=== PATIENT | female | born 1990 | race Caucasian/White ===

== ENCOUNTER 2016-10-04 09:31 | Emergency (ER) | payer BC, OTHER ==
[2016-10-04 09:41] VITALS: BP 128/74
[2016-10-04] MEDS ORDERED: Albuterol/Ipratropium NEB.SOL* Albuterol 2.5 MG/Ipratropium 0.5 MG 3 ML INH ONE ×2 (09:50→09:51)
--- NOTE | 2016-10-04 10:23 | UC ---
Ray Rizzo Thomas, scribed for Kim May MD on 10/04/16 at 1004 . Shortness of Breath HPI - HPI Summary HPI Summary: The pt is a 26 y/o F with a Hx of asthma presenting to [facility] c/o SOB progressing x 2 days. PT states feels like settling in chest. . Pt additionally c/o CAT, throat pain, throat tightness, wheezing (minor), cough with green production. She was recently treated for a sinus infection and completed 7/10 days of Abx. She also reports a recent yeast infection improved with tx. Pt states she has used her albuterol inhaler yesterday - did not use today. STates it is . She has taken Nyquil the last two days. No h/o admission, intubation for asthma. Pt states sinus congestion and ear fullness improved. No fevers, chills, rash. PMHx: asthma, sleep apnea. PSHx: tonsillectomy, knee repair. SHx: smoking (1/2 PPD), no alcohol, no illicit drugs. FHx: asthma. She has never been hospitalized or intubated for her asthma. She has never taken prednisone for her asthma. She has an IUD implanted. She works at [employer]. She sleeps with CPAP. Patients medication reviewed this visit. - History of Current Complaint Chief Complaint: UCRespiratory Stated Complaint: SOB Time Seen by Provider: 10/04/16 09:44 Hx Obtained From: Patient Hx Last Menstrual Period: pt has an IUD and states not getting a menses Onset/Duration: Sudden Onset, Lasting Hours - began today, Still Present Timing: Constant Dyspnea At: Rest Aggrevating Factors: Nothing Alleviating Factors: Bronchodilators, OTC Meds Associated Signs & Symptoms: Positive: Cough (Productive) - green, Wheezing, Other - POS: throat tightness, CAT - Allergy/Home Medications Allergies/Adverse Reactions: Allergies Allergy/AdvReac Type Severity Reaction Status Date / Time No Known Allergies Allergy Verified 10/04/16 09:41 Home Medications: Home Medications Albuterol HFA INHALER* [Ventolin HFA Inhaler*] 2 puff INH Q4H PRN 10/04/16 [ History Confirmed 10/04/16] Iud 10/04/16 [History] PMH/Surg Hx/FS Hx/Imm Hx Previously Healthy: No Respiratory History: Asthma, Other - Hx of sleep apnea Other Respiratory History: sleep apnea - Surgical History Surgical History: Yes Surgery Procedure, Year, and Place: LT [id number] RT [id number] APPENDECTOMY= 2012. tonsils - Family History Known Family History: Positive: Other - POS: asthma - Social History Alcohol Use: Weekly Alcohol Amount: maybe once a week Substance Use Type: None Substance Use Comment - Amount & Last Used: alcohol 06/24/13 Smoking Status (MU): Light Every Day Tobacco Smoker Type: Cigarettes Amount Used/How Often: 5 per day Length of Time of Smoking/Using Tobacco: since age 21 Have You Smoked in the Last Year: Yes - Immunization History Most Recent Influenza Vaccination: 2013 Most Recent Tetanus Shot: WITHIN 10 YRS Most Recent Pneumonia Vaccination: never Review of Systems Constitutional: Negative Skin: Negative Eyes: Negative ENT: Negative Respiratory: Shortness Of Breath, Cough - with green production, Other - POS: throat tightness, wheezing Cardiovascular: Negative Gastrointestinal: Negative Genitourinary: Negative Motor: Negative Neurovascular: Negative Musculoskeletal: Negative Neurological: Headache Psychological: Negative All Other Systems Reviewed And Are Negative: Yes Physical Exam Triage Information Reviewed: Yes Appearance: Well-Appearing, No Pain Distress, Well-Nourished Vital Signs: Initial Vital Signs Temp 98.2 F 10/04/16 09:33 Pulse 85 10/04/16 09:33 Resp 18 10/04/16 09:33 BP 128/74 10/04/16 09:33 Pulse Ox 99 10/04/16 09:33 Vital Signs Reviewed: Yes Eye Exam: Normal Eyes: Positive: Conjunctiva Clear ENT Exam: Normal ENT: Positive: Hearing grossly normal, Pharynx normal, Nasal drainage, TMs normal Dental Exam: Normal Neck exam: Normal Neck: Positive: Supple, Nontender, No Lymphadenopathy Respiratory Exam: Normal Respiratory: Positive: Chest non-tender, No respiratory distress - mild increased WOB + scattered diffuse wheeze No rhonci, No accessory muscle use. Negative: Normal breath sounds, Respiratory distress Cardiovascular Exam: Normal Cardiovascular: Positive: RRR, No Murmur, Pulses Normal Abdominal Exam: Normal Abdomen Description: Positive: Nontender, No Organomegaly, Soft Bowel Sounds: Positive: Present Musculoskeletal Exam: Normal Musculoskeletal: Positive: Strength Intact Neurological Exam: Normal Neurological: Positive: Alert Psychological Exam: Normal Psychological: Positive: Normal Response To Family Skin Exam: Normal Re-Evaluation - Re-Evaluation First Eval Re-Evaluation Time: 10:30 Change: Improved Comment: Pt wheezing markedly improved. Still few, scattered wheezes. No increased WOB. Speaking easier sentences. Will give second duoneb. Pt states PCP office just called her back and called in ?RX to pharmacy. I called [facility] and I was informed PCP sent script for Levaquin Second Eval Re-Evaluation Time: 11:00 Change: Improved Shortness of Breath Dx - Course Course Of Treatment: The patient is a 26 y/o F with a Hx of asthma that presents to the ED c/o SOB that began this AM. She additionally c/o sore throat , wheezing, and CAT. REcent abx for sinusisits. At [facility] she was given two treatments of Duoneb. - Differential Dx/Diagnosis Provider Diagnoses: asthma exacerbation Discharge - Discharge Plan Condition: Stable Disposition: HOME Prescriptions: Albuterol HFA INHALER* [Ventolin HFA Inhaler*] 1 puff INH Q4H PRN #1 mdi PRN Reason: wheeze predniSONE TAB* [Deltasone TAB*] 50 mg PO DAILY #5 tab Patient Education Materials: Asthma (ED) Forms: *Work Release Referrals: Tracy Wagoner MD [Primary Care Provider] - Additional Instructions: - Take prednisone as prescribed until gone - Take antibiotics as prescribed by your doctor - Use inhaler - 2 puffs every 4 hours today, then eveyr 4 hours as needed - Stay well hydrated - drink plenty of non-alcoholic, non-caffinated beverages - After you have been on antibiotics for 2 days - change your toothbrush and your pillowcase. These infections are spread by secretions - do NOT share eating or drinking utensils - clean items you share with other people such as cell phones, computer mouse, TV remote, computer tablets, etc - Contact your doctor to schedule a follow-up appointment. Contact your doctor or return with questions or concerns The documentation as recorded by the Ray baldwin Thomas accurately reflects the service I personally performed and the decisions made by me, Kim May MD.
== END 2016-10-04 11:15 | disposition home or self-care (01) ==
LOC: UCEAST 09:31
DX: J45.901 Unspecified asthma with (acute) exacerbation (principal); R51 Headache; R07.0 Pain in throat; R05 Cough; F17.210 Nicotine dependence, cigarettes, uncomplicated
CPT/HCPCS: 99213; A9270-GY; G0463

== ENCOUNTER 2017-02-23 08:03 | Day surgery (SDC) | payer OTHER ==
[~2017-02-23 08:03] MED LIST: Buffered Lidocaine 0.9% SYRIN* 5 ML/SYR SYRINGE INTRADERM ONE; Famotidine IV* 10 MG/ML 2 ML (20 mg) IV ONE; Metoclopramide TAB* 10 MG PO ONE
[2017-02-23] MEDS ORDERED: Famotidine IV* 10 MG/ML 2 ML (20 mg) ONE (08:10)
[2017-02-23] MEDS ORDERED: Metoclopramide TAB* 10 MG ONE (08:11)
[2017-02-23] MEDS ORDERED: Buffered Lidocaine 0.9% SYRIN* 5 ML/SYR SYRINGE ONE (08:11)
[2017-02-23] MEDS ORDERED: Oxymetazoline 0.05% NASAL SPR* 15 ML BTL ONE ×2 (08:45→09:39)
[2017-02-23] MEDS ORDERED: Dexamethasone IV* 4 MG/ML 1 ML (4 MG) ONE (08:58)
[2017-02-23] MEDS ORDERED: fentaNYL* 50 MCG/ML 2 ML VIAL (100 MCG VIAL) ONE (08:58)
[2017-02-23] MEDS ORDERED: Lidocaine 2% PF * 5 ML VIAL ONE (08:58)
[2017-02-23] MEDS ORDERED: Propofol* 10 MG/ML 20 ML BTL IV PUSH ONE (08:58)
[2017-02-23] MEDS ORDERED: Ondansetron INJ* 2 MG/ML VIAL ONE (08:58)
[2017-02-23] MEDS ORDERED: Midazolam* 1 MG/ML 10 ML VIAL (10 MG) ONE (08:59)
[2017-02-23] MEDS ORDERED: Ondansetron INJ* 2 MG/ML VIAL IV PRN (09:33)
[2017-02-23] MEDS ORDERED: oxyCODONE/Acetamin 5/325 MG* TAB PO PRN (09:33)
[2017-02-23] MEDS ORDERED: fentaNYL* 50 MCG/ML 2 ML VIAL (100 MCG VIAL) IV PRN (09:33)
[2017-02-23] MEDS ORDERED: Lidocaine 1% INJ* 10 MG/ML 30 ML SDV ONE (09:39)
[2017-02-23] MEDS ORDERED: Lidocaine 1% MPF wEPI 200,000* 30 ML SDV ONE (09:39)
[2017-02-23] MEDS ORDERED: Lidocaine 4% TOPICAL* 50 ML TOP.SOLN ONE (09:39)
[2017-02-23] MEDS ORDERED: Bacitracin OINTMENT* 0.5% 0.5 oz TUBE ONE (09:39)
[2017-02-23] MEDS ORDERED: oxyCODONE/Acetamin 5/325 MG* TAB ONE (11:44)
[2017-02-23 12:24] VITALS: BP 145/89
--- NOTE | 2017-02-23 21:04 | OP ---
DATE OF OPERATION: 02/23/17 - [facility] DATE OF : 89 SURGEON: Cam Sullivan MD AOC DIRECTOR COMBAT PLANS OFFICER: None. ANESTHESIOLOGIST: Angel Escobar MD ANESTHESIA: General. PRE-OP DIAGNOSES: Deviated nasal septum and inferior turbinate hypertrophy. POST-OP DIAGNOSES: Deviated nasal septum and inferior turbinate hypertrophy. OPERATIVE PROCEDURE: Septoplasty with outfracture and cautery of the inferior turbinates. ESTIMATED BLOOD LOSS: Negligible. SPECIMENS: None. Septal cartilage and bone were discarded. DESCRIPTION OF PROCEDURE: The patient was brought to the operating room. General anesthesia was induced and an LMA was placed. Time-out was performed. The patient was then draped sterilely. 1% lidocaine with epinephrine was infiltrated into both inferior turbinates and both sides of the septum. A left hemitransfixion incision was made. Left mucoperichondrial flap was elevated as well as right mucoperichondrial flap. A transition incision was then made through the quadrangular cartilage. A large piece of cartilage was harvested with swivel knife more inferiorly. The maxillary crest was significantly deviated into the left nasal cavity. This was taken down with a 4-mm osteotome. More posteriorly there was a septal spur, which was removed with a double action rongeur. Once all of the deviated septal cartilage and bone were removed the turbinates were then infractured, approximately three passes were made for each turbinate with Elmed bipolar cautery device, they were then outfractured. Two large pieces of cartilage were then flattened with morselizer , they were placed back between the mucoperichondrial flaps and sutured in position. The hemitransfixion incision was then closed with 4-0 chromic, septal splints were then placed bilaterally. The patient was then returned to the care of the anesthesiologist, was extubated, and delivered to the PACU in stable condition. [id number]/[facility] #: [id number] [facility]
== END 2017-02-23 12:24 | disposition home or self-care (01) ==
LOC: OR 08:03
PROVIDERS: ATTEND Otolaryngology
DX: J34.2 Deviated nasal septum (principal); J34.3 Hypertrophy of nasal turbinates; F17.210 Nicotine dependence, cigarettes, uncomplicated; G47.33 Obstructive sleep apnea (adult) (pediatric); J45.909 Unspecified asthma, uncomplicated; F90.9 Attention-deficit hyperactivity disorder, unspecified type; F41.9 Anxiety disorder, unspecified; G47.00 Insomnia, unspecified
CPT/HCPCS: 81025; A9270-GY; J1100; J2001; J2250; J2405; J2704; J3010